=== PATIENT | female | born 1985 | race Two or more races ===

== ENCOUNTER 2022-09-16 13:27 | Outpatient (CLI) | payer OTHER | END 2022-09-16 14:50 | disposition home or self-care (01) | LOC: PRENATAL 13:27 | PROVIDERS: ATTEND Obstetrics & Gynecology Maternal & Fetal Medicine | DX: O36.80X0 Pregnancy with inconclusive fetal viability, not applicable or unspecified (principal); O09.529 Supervision of elderly multigravida, unspecified trimester; O34.219 Maternal care for unspecified type scar from previous cesarean delivery; O14.90 Unspecified pre-eclampsia, unspecified trimester; Z3A.12 12 weeks gestation of pregnancy ==

== ENCOUNTER 2022-10-14 08:50 | Outpatient (CLI) | payer OTHER | END 2022-10-14 11:00 | disposition home or self-care (01) | LOC: PRENATAL 08:50 | PROVIDERS: ATTEND Obstetrics & Gynecology Maternal & Fetal Medicine | DX: O26.849 Uterine size-date discrepancy, unspecified trimester (principal); O28.5 Abnormal chromosomal and genetic finding on antenatal screening of mother; O09.529 Supervision of elderly multigravida, unspecified trimester; O34.219 Maternal care for unspecified type scar from previous cesarean delivery; O14.90 Unspecified pre-eclampsia, unspecified trimester; Z3A.17 17 weeks gestation of pregnancy ==

== ENCOUNTER 2022-11-11 11:18 | Outpatient (CLI) | payer OTHER | END 2022-11-11 13:07 | disposition home or self-care (01) | LOC: PRENATAL 11:18 | PROVIDERS: ATTEND Obstetrics & Gynecology Maternal & Fetal Medicine | DX: O35.3XX0 Maternal care for (suspected) damage to fetus from viral disease in mother, not applicable or unspecified (principal); O28.5 Abnormal chromosomal and genetic finding on antenatal screening of mother; O09.529 Supervision of elderly multigravida, unspecified trimester; O34.219 Maternal care for unspecified type scar from previous cesarean delivery; O14.90 Unspecified pre-eclampsia, unspecified trimester; O44.00 Complete placenta previa NOS or without hemorrhage, unspecified trimester; Z3A.20 20 weeks gestation of pregnancy ==

== ENCOUNTER 2023-01-05 10:27 | Outpatient (CLI) | payer OTHER | END 2023-01-05 12:14 | disposition home or self-care (01) | LOC: PRENATAL 10:27 | PROVIDERS: ATTEND Obstetrics & Gynecology Maternal & Fetal Medicine | DX: O35.9XX0 Maternal care for (suspected) fetal abnormality and damage, unspecified, not applicable or unspecified (principal); O34.219 Maternal care for unspecified type scar from previous cesarean delivery; O09.529 Supervision of elderly multigravida, unspecified trimester; O14.90 Unspecified pre-eclampsia, unspecified trimester; Z3A.28 28 weeks gestation of pregnancy ==

== ENCOUNTER 2023-02-16 11:02 | Outpatient (CLI) | payer OTHER | END 2023-02-16 11:46 | disposition home or self-care (01) | LOC: PRENATAL 11:02 | PROVIDERS: ATTEND Obstetrics & Gynecology Maternal & Fetal Medicine | DX: O26.849 Uterine size-date discrepancy, unspecified trimester (principal); O36.8199 Decreased fetal movements, unspecified trimester, other fetus; O09.529 Supervision of elderly multigravida, unspecified trimester; O34.219 Maternal care for unspecified type scar from previous cesarean delivery; O14.90 Unspecified pre-eclampsia, unspecified trimester; Z3A.34 34 weeks gestation of pregnancy ==

== ENCOUNTER 2023-03-02 09:45 | Outpatient (CLI) | payer OTHER | END 2023-03-02 09:49 | disposition home or self-care (01) | LOC: PRENATAL 09:45 | PROVIDERS: ATTEND Obstetrics & Gynecology Maternal & Fetal Medicine | DX: O26.849 Uterine size-date discrepancy, unspecified trimester (principal); O36.8199 Decreased fetal movements, unspecified trimester, other fetus; O09.529 Supervision of elderly multigravida, unspecified trimester; O34.219 Maternal care for unspecified type scar from previous cesarean delivery; O14.90 Unspecified pre-eclampsia, unspecified trimester; O24.419 Gestational diabetes mellitus in pregnancy, unspecified control; Z3A.36 36 weeks gestation of pregnancy ==

== ENCOUNTER 2023-03-10 22:49 | Outpatient (CLI) | payer OTHER ==
[2023-03-10] MEDS ORDERED: FOLIC ACID0.8 M1 PO (23:08)
[2023-03-10] MEDS ORDERED: ANIMAL CHEWS1 EACH PO (23:08)
[2023-03-10] MEDS ORDERED: HUMULIN N100 UNIT/2 SUBCUTANEO (23:09)
[2023-03-10] MEDS ORDERED: HUMULIN R100 UNIT/1 SUBCUTANEO (23:10)
[2023-03-10 23:20] LABS: HEMATOCRIT 33.5 % (36.0-45.00); MEAN CORPUSCULAR HEMOGLOBIN 25.7 pg (27.00-32.0); PH,URINE 6.5 (5.0-8.0); PLATELET COUNT 305 K/uL (150-450); RED BLOOD COUNT 4.29 M/uL (4.00-6.00); URINE APPEARANCE Clear; URINE BILIRRUBIN Negative (NEGATIVE); URINE BLOOD Negative; URINE COLOR Yellow; URINE GLUCOSE Negative (NEGATIVE); URINE LEUKOCYTE Negative; URINE NITRATE Negative; URINE PROTEIN Negative (NEGATIVE)
[2023-03-10 23:24] LABS: URINE BACTERIA 369.1 uL (0.0-1933); URINE EPITHELIAL CELLS 8.7 uL (0.0-38.8); URINE WBC 3.7 uL (0.0-23.2)
[2023-03-10 23:34] LABS: URINE RBC 1.4 uL (0.0-20.8)
[2023-03-10 23:50] LABS: ALBUMIN 2.6 gm/dL (3.4-5.0); BILIRUBIN TOTAL 0.57 mg/dL (0.3-1.2); CALCIUM 8.9 mg/dL (8.5-10.1); CREATININE SERUM 0.64 mg/dL (0.55-1.02); GFR 105.6; GLOBULINA 3.7 G/DL (2.4-3.5); POTASSIUM 4.08 mEq/L (3.5-5.1); TOTAL PROTEIN 6.3 gm/dL (6.4-8.2); URIC ACID 3.8 mg/dL (2.5-7.5)
== END 2023-03-11 09:47 | disposition home or self-care (01) ==
LOC: OBS/DEL 22:49
PROVIDERS: Obstetrics & Gynecology; ATTEND Obstetrics & Gynecology
DX: O26.893 Other specified pregnancy related conditions, third trimester (principal); R51.9 Headache, unspecified; Z3A.38 38 weeks gestation of pregnancy

== ENCOUNTER 2023-03-15 14:02 | Inpatient (IN) | payer OTHER ==
[~2023-03-15] VITALS: Ht 160 cm; Wt 108.9 kg
[~2023-03-15 14:02] MED LIST: ANIMAL CHEWS1 EACH PO; FOLIC ACID0.8 M1 PO; HUMULIN N100 UNIT/2 SUBCUTANEO; HUMULIN R100 UNIT/1 SUBCUTANEO
[2023-03-15 15:30] LABS: PH,URINE 6.5 (5.0-8.0); URINE APPEARANCE Clear; URINE BILIRRUBIN Negative (NEGATIVE); URINE BLOOD Negative; URINE COLOR Yellow; URINE GLUCOSE Negative (NEGATIVE); URINE LEUKOCYTE Negative; URINE NITRATE Negative; URINE PROTEIN Negative (NEGATIVE)
[2023-03-15 15:30] LABS: HEMOGLOBIN 11.5 g/dL (12.0-15.00); MEAN CELL VOLUME 77.8 fL (80.00-100.00); MEAN CORPUSCULAR HEMOGLOBIN 25.6 pg (27.00-32.0); MEAN CORPUSCULAR HGB CONC 32.9 g/dl (32.0-36.0); PLATELET COUNT 331 K/uL (150-450); RED CELL DISTRIBUTION WIDTH 15.2 % (11.5-14.5)
[2023-03-15 15:33] LABS: URINE BACTERIA 263.2 uL (0.0-1933); URINE EPITHELIAL CELLS 8.1 uL (0.0-38.8); URINE WBC 4.4 uL (0.0-23.2)
[2023-03-15 15:35] LABS: URINE RBC 1.2 uL (0.0-20.8)
[2023-03-15] MEDS ORDERED: ECOTRIN81 MG PO (15:36)
[2023-03-15 16:00] LABS: INR 0.94; PARTIAL THROMBOPLASTIN TIME 26.3 SECONDS (22.0-34.0); PROTHROMBIN TIME 9.9 SECONDS (9.0-11.5)
[2023-03-15 16:07] LABS: ALBUMIN 2.6 gm/dL (3.4-5.0); BILIRUBIN TOTAL 0.58 mg/dL (0.3-1.2); CALCIUM 9.2 mg/dL (8.5-10.1); CREATININE SERUM 0.56 mg/dL (0.55-1.02); GFR 123.19; GLOBULINA 4.1 G/DL (2.4-3.5); POTASSIUM 4.46 mEq/L (3.5-5.1); TOTAL PROTEIN 6.7 gm/dL (6.4-8.2)
[2023-03-15 21:48] LABS: ABG PH 7.338 (7.35-7.45); ABG pCO2 38.9 mmHg (35-45); BASE EXCESS -4.9 mmol/l; BICARBONATE 20.4 mmol/l (23-25); SaO2 71.7 %
[2023-03-15 21:49] LABS: Tco2 21.6 mmol/l; o2 21 %
[2023-03-16 07:13] LABS: HEMATOCRIT 32.6 % (36.0-45.00); HEMOGLOBIN 10.7 g/dL (12.0-15.00); MEAN CELL VOLUME 78.3 fL (80.00-100.00); MEAN CORPUSCULAR HEMOGLOBIN 25.8 pg (27.00-32.0); MEAN CORPUSCULAR HGB CONC 32.9 g/dl (32.0-36.0); PLATELET COUNT 273 K/uL (150-450); RED BLOOD COUNT 4.16 M/uL (4.00-6.00); RED CELL DISTRIBUTION WIDTH 15.3 % (11.5-14.5)
== END 2023-03-18 17:08 | disposition home or self-care (01) | DRG 785 ==
LOC: OB/GYN 14:02 → LDR 14:02 → O/R 19:34 → OB/GYN 21:40
PROVIDERS: ADMIT Obstetrics & Gynecology; ATTEND Obstetrics & Gynecology
PROC: 0UB70ZZ Excision of Bilateral Fallopian Tubes, Open Approach (ICD-10-PCS; 2023-03-15)
PROC: 4A1HXCZ Monitoring of Products of Conception, Cardiac Rate, External Approach (ICD-10-PCS; 2023-03-15)
PROC: 10D00Z1 Extraction of Products of Conception, Low, Open Approach (ICD-10-PCS; principal; 2023-03-15 19:30)
DX: O24.420 Gestational diabetes mellitus in childbirth, diet controlled (principal); O11.4 Pre-existing hypertension with pre-eclampsia, complicating childbirth; O34.211 Maternal care for low transverse scar from previous cesarean delivery; Z3A.38 38 weeks gestation of pregnancy; Z37.0 Single live birth; Z30.2 Encounter for sterilization; Z20.822 Contact with and (suspected) exposure to COVID-19